=== PATIENT | female | born 1970 | race American Indian/Alaskan Native ===

== ENCOUNTER 2019-01-24 01:32 | Emergency (ER) | payer BC, OTHER ==
[~2019-01-24] VITALS: Ht 165.1 cm; Wt 56.0 kg
[~2019-01-24 01:32] MED LIST: CYCL-1 PO; FAMO-1 PO; HYDR-3965 PO; PANT-47 PO; POTA20TA19 PO; ZOF4T PO
[2019-01-24 01:35] VITALS: BP 136/92
[2019-01-24] MEDS ORDERED: LIDOcaine Viscous 15ml cup PO ONE (01:50)
[2019-01-24] MEDS ORDERED: mag hydrox/Alum hydrox/simeth 30ml oral suspension PO ONE (01:50)
[2019-01-24] MEDS ORDERED: OMEP40CA13 PO (02:05)
== END 2019-01-24 02:26 | disposition home or self-care (01) ==
LOC: ER 01:33
DX: R10.13 Epigastric pain (principal); R11.0 Nausea; F41.9 Anxiety disorder, unspecified; Z90.49 Acquired absence of other specified parts of digestive tract; Z98.84 Bariatric surgery status; Z88.0 Allergy status to penicillin; Z79.899 Other long term (current) drug therapy
CPT/HCPCS: 99282

== ENCOUNTER 2020-06-04 18:09 | Emergency (ER) | payer BC ==
[~2020-06-04] VITALS: Ht 165.1 cm; Wt 51.8 kg
[2020-06-04 18:56] LABS: CLARITY,URINE CLEAR (Clear); COLOR,URINE YELLOW (Yellow); GLUCOSE, URINE NEGATIVE (Neg); KETONES,URINE 15 mg/dl (Neg); LEUKOCYTE ESTERASE ,URINE SMALL (Neg); NITRITES, URINE POSITIVE (Neg); OCCULT BLOOD,URINE NEGATIVE (Neg); PROTEIN,URINE NEGATIVE (Neg); URINE HCG NEGATIVE (NEG); UROBILINOGEN,URINE 0.2 E.U/dL (0.2-1.0)
[2020-06-04 19:02] LABS: UA COLLECTION TYPE CLN CATCH MIDSTREAM
[2020-06-04 19:03] LABS: BASOPHILS # (AUTO) 0.1 X10'3 (0-0.2); BASOPHILS % (AUTO) 0.7 % (0-1); EOSINOPHILS # (AUTO) 0.1 X10'3 (0-0.9); EOSINOPHILS % (AUTO) 0.8 % (0-6); HEMATOCRIT 36.9 % (35.0-45.0); HEMOGLOBIN 11.7 g/dl (12.0-16.0); LYMPHOCYTES # (AUTO) 1.5 X10'3 (1.1-4.8); LYMPHOCYTES % (AUTO) 19.1 % (21-51); MEAN CORPUSCULAR HEMOGLOBIN 25.4 PG (27.0-31.0); MEAN CORPUSCULAR HGB CONC 31.7 g/dL (33.0-36.5); MEAN CORPUSCULAR VOLUME 79.9 FL (78-98); MEAN PLATELET VOLUME 8.9 FL (7.4-10.4); MONOCYTES # (AUTO) 0.7 X10'3 (0-0.9); MONOCYTES % (AUTO) 8.3 % (2-12); NEUTROPHILS # (AUTO) 5.7 X10'3 (1.8-7.7); NEUTROPHILS % (AUTO) 71.1 % (42-75); PLATELET COUNT 215 X10'3 (140-440); RED BLOOD COUNT 4.62 X10'6 (4.20-5.60); RED CELL DISTRIBUTION WIDTH 15.1 % (11.5-14.5)
[2020-06-04 19:04] LABS: BACTERIA,URINE 4+ /HPF (Neg); RBC,URINE NONE SEEN /HPF (0-2); SQUAMOUS EPITHELIAL CELL,UR FEW /LPF (FEW)
[2020-06-04 19:19] LABS: ALANINE AMINOTRANSFERASE 34 U/L (12-78); ALBUMIN 3.9 G/DL (3.4-5.0); ALBUMIN/GLOBULIN RATIO 0.9 (1.1-1.5); ALKALINE PHOSPHATASE 99 IU/L (46-116); ANION GAP 14 (8-16); ASPARTATE AMINO TRANSFERASE 26 U/L (10-37); BILIRUBIN,TOTAL 0.8 MG/DL (0.1-1.0); BLOOD UREA NITROGEN 14 MG/DL (7-18); BUN/CREATININE RATIO 17.9 (6.6-38.0); CALCIUM 9.4 MG/DL (8.5-10.1); CHLORIDE 108 MMOL/L (99-107); CREATININE 0.78 MG/DL (0.40-0.90); GLUCOSE 77 MG/DL (70-104); LIPASE 107 U/L (73-393); POTASSIUM 3.7 MMOL/L (3.5-5.1); SODIUM 148 MMOL/L (135-145); TOTAL CARBON DIOXIDE 26.4 MMOL/L (24-32); TOTAL PROTEIN 8.4 G/DL (6.4-8.2); eGFR 79 ML/MIN
[2020-06-04] MEDS ORDERED: ondansetron 4mg rapidly disintigrating tab PO ONE (20:30)
[2020-06-04] MEDS ORDERED: sulfamethoxazole/trimethoprim DS (800/160mg) tablet PO ONE (21:30)
[2020-06-04] MEDS ORDERED: proCHLORperazine 10 MG/2 ml inj IM ONE (21:30)
[2020-06-04] MEDS ORDERED: PROC-8 PO (21:36)
[2020-06-04] MEDS ORDERED: SULF1TAB49 PO (21:36)
[2020-06-04 21:43] VITALS: BP 152/81
== END 2020-06-04 21:55 | disposition home or self-care (01) ==
LOC: ER 18:09 → MERGE 18:09 → ER 21:55
DX: N39.0 Urinary tract infection, site not specified (principal); R10.13 Epigastric pain; R11.2 Nausea with vomiting, unspecified; F17.200 Nicotine dependence, unspecified, uncomplicated; Z90.49 Acquired absence of other specified parts of digestive tract; Z88.0 Allergy status to penicillin; Z79.899 Other long term (current) drug therapy
CPT/HCPCS: 36415; 80053; 81001; 81025; 83690; 85025; 87077; 87088; 87186; 96372; 99284; J0780

== ENCOUNTER 2020-11-28 22:56 | Emergency (ER) | payer BC ==
[~2020-11-28] VITALS: Ht 165.1 cm; Wt 114.0 kg
[~2020-11-28 22:56] MED LIST changes: +PROC-8 PO
[2020-11-28 23:59] LABS: ALANINE AMINOTRANSFERASE 24 U/L (12-78); ALBUMIN 3.8 G/DL (3.4-5.0); ALBUMIN/GLOBULIN RATIO 0.8 (1.1-1.5); ALKALINE PHOSPHATASE 109 IU/L (46-116); ANION GAP 15 (8-16); ASPARTATE AMINO TRANSFERASE 21 U/L (10-37); BILIRUBIN,TOTAL 0.7 MG/DL (0.1-1.0); BLOOD UREA NITROGEN 16 MG/DL (7-18); BUN/CREATININE RATIO 19.5 (6.6-38.0); CHLORIDE 107 MMOL/L (99-107); CREATININE 0.82 MG/DL (0.40-0.90); GLUCOSE 64 MG/DL (70-104); LIPASE 121 U/L (73-393); POTASSIUM 3.7 MMOL/L (3.5-5.1); SODIUM 146 MMOL/L (135-145); TOTAL CARBON DIOXIDE 24.5 MMOL/L (24-32); TOTAL PROTEIN 8.3 G/DL (6.4-8.2); eGFR 74 ML/MIN
[2020-11-29 02:12] LABS: HEMATOCRIT 38.8 % (35.0-45.0); HEMOGLOBIN 12.4 g/dl (12.0-16.0); MEAN CORPUSCULAR VOLUME 70.7 FL (78-98); RED BLOOD COUNT 5.49 X10'6 (4.20-5.60); WHITE BLOOD COUNT 4.3 X10'3 (4.5-11.0)
[2020-11-29 02:13] LABS: BASOPHILS % (AUTO) 1.8 % (0-1); EOSINOPHILS % (AUTO) 1.1 % (0-6); LYMPHOCYTES % (AUTO) 30.1 % (21-51); MEAN CORPUSCULAR HEMOGLOBIN 22.7 PG (27.0-31.0); MEAN CORPUSCULAR HGB CONC 32.1 g/dL (33.0-36.5); MONOCYTES % (AUTO) 5.8 % (2-12); NEUTROPHILS % (AUTO) 61.2 % (42-75); RED CELL DISTRIBUTION WIDTH 18.8 % (11.5-14.5)
[2020-11-29 02:14] LABS: BASOPHILS # (AUTO) 0.1 X10'3 (0-0.2); LYMPHOCYTES # (AUTO) 1.3 X10'3 (1.1-4.8); MONOCYTES # (AUTO) 0.2 X10'3 (0-0.9); NEUTROPHILS # (AUTO) 2.6 X10'3 (1.8-7.7)
[2020-11-29] MEDS ORDERED: ondansetron/PF 4mg/2ml inj IV ONE (03:40)
[2020-11-29] MEDS ORDERED: proCHLORperazine 10 MG/2 ml inj IV ONE (03:40)
[2020-11-29] MEDS ORDERED: pantoprazole 40 MG vial IV ONE (03:40)
[2020-11-29] MEDS ORDERED: ketorolac trometh. 30mg/ml inj. IV ONE (03:40)
[2020-11-29] MEDS ORDERED: famotidine/PF 10 mg/ml inj IV ONE (03:40)
[2020-11-29] MEDS ORDERED: dextrose 5%-1/2 normal saline 1,000 ML IV ONE (03:45)
[2020-11-29] MEDS ORDERED: PROC-8 PO (05:38)
[2020-11-29] MEDS ORDERED: ONDA4TAB6 PO (05:40)
--- NOTE | 2020-11-29 05:57 | NUR ---
called daughter xochitl to come black pickler pt as pt is discharge ready. pt said she will send her sister to come black pickler pt
[2020-11-29 06:54] VITALS: BP 120/83
== END 2020-11-29 06:57 | disposition home or self-care (01) ==
LOC: ER 22:57
DX: R11.2 Nausea with vomiting, unspecified (principal); R10.84 Generalized abdominal pain; Z90.49 Acquired absence of other specified parts of digestive tract; Z98.890 Other specified postprocedural states; Z88.0 Allergy status to penicillin; Z79.899 Other long term (current) drug therapy
CPT/HCPCS: 36415; 80053; 82948; 83690; 85025; 96361; 96374; 96375; 99284; C9113; J0780; J1885; J2405; J3490

== ENCOUNTER 2024-06-18 15:08 | Emergency (ER) | payer BC, OTHER ==
[~2024-06-18] VITALS: Ht 165.1 cm; Wt 71.8 kg
[~2024-06-18 15:08] MED LIST changes: +ONDA4TAB6 PO; +POTA-207 PO; -POTA20TA19 PO
[2024-06-18 15:42] VITALS: BP 90/57; PULSE 67; TEMP 97.4; O2SAT 100
[2024-06-18] MEDS ORDERED: HYDR-3965 PO (17:25)
[2024-06-18] MEDS: HYDROcodone/acetaminophen 10/325mg tab PO ONE (17:44)
[2024-06-18 18:00] VITALS: RESP 16
== END 2024-06-18 18:13 | disposition home or self-care (01) ==
LOC: ER 15:09
DX: S52.021A Displaced fracture of olecranon process without intraarticular extension of right ulna, initial encounter for closed fracture (principal); Z88.0 Allergy status to penicillin; Z90.49 Acquired absence of other specified parts of digestive tract; Z79.899 Other long term (current) drug therapy; W18.39XA Other fall on same level, initial encounter; Y93.89 Activity, other specified; Y92.89 Other specified places as the place of occurrence of the external cause; Y99.8 Other external cause status
CPT/HCPCS: 29105; 73080; 99283; A4565; A6258; A6446; A6449

== ENCOUNTER 2025-01-01 06:17 | Day surgery (SDC) | payer BC, OTHER ==
--- NOTE | 2024-12-21 15:53 | ELECTROCARDIOGRAPH REPORT ---
[facility] Test Date: 2024-12-21 Test Time: 15:48:02 Pat Name: ASHER SALEH Department: [facility]-PRE-OP Patient ID: [facility]-[id number] Room: Gender: F [employer] Records Clerk: : 1970 Requested By: CYN LOZANO Order Number: [id number] Reading MD: Dr. LARRY Zee Measurements Intervals Win[place] Rate: 63 P: 71 OK: 152 QRS: 84 QRSD: 135 T: 70 QT: 437 QTc: 448 Interpretive Statements Sinus rhythm IVCD, consider atypical RBBB Electronically Signed On 12-22-2024 15:36:[address] LARRY Zee Please click the below link to view image of tracing.
[2024-12-21 16:44] LABS: MEAN PLATELET VOLUME 9.3 FL (7.4-10.4); PRE OP HEMATOCRIT 35.7 % (35.0-45.0); PRE OP HEMOGLOBIN 11.9 g/dL (12.0-16.0); PRE OP PLATELET COUNT 186 X10'3 (140-440); PRE OP WHITE BLOOD COUNT 7.2 10'3 (4.8-10.8); RED CELL DISTRIBUTION WIDTH 16.5 % (11.5-14.5)
[2024-12-21 17:21] LABS: CREATININE 0.76 MG/DL (0.40-0.90); PRE OP ALT 21 U/L (30-65); PRE OP ANION GAP 7 (8-16); PRE OP AST 18 U/L (10-37); PRE OP BILIRUB, TOTAL 0.4 MG/DL (0.0-1.0); PRE OP GLUCOSE 93 MG/DL (70-104); PRE OP POTASSIUM 3.6 MMOL/L (3.4-5.1); PRE OP SODIUM 139 MMOL/L (135-145); TOTAL CARBON DIOXIDE 23.0 MMOL/L (24-32); eGFR 80 ML/MIN
[2025-01-01] VITALS (19 sets, daily range): BP systolic 97–138; BP diastolic 68–94; PULSE 53–61; RESP 10–16; TEMP 97.6; O2SAT 97–100
[~2025-01-01] VITALS: Ht 165.1 cm; Wt 66.5 kg
[~2025-01-01 06:17] MED LIST changes: -CYCL-1 PO; -FAMO-1 PO; -HYDR-3965 PO; +NO HOME MEDS; -ONDA4TAB6 PO; -PANT-47 PO; -POTA-207 PO; -PROC-8 PO; -ZOF4T PO; +ceFAZolin 2gm/dext,iso 50mL 50 ML IV ONE; +clindamycin-Cleocin 900mg/D5W 50 ML IV ONE
[2025-01-01] MEDS ORDERED: BUPIVAcaine/PF 2.5mg/ml (0.25%) 10ml vial ONE ×2 (06:49→09:00)
[2025-01-01] MEDS: ringers solution, lacted 1,000 ML IV SCH (07:28)
[2025-01-01] MEDS ORDERED: ondansetron/PF 4mg/2ml inj IV PRN (08:10)
[2025-01-01] MEDS ORDERED: meperidine/PF 25mg/ml syringe IV PRN ×3 (08:10)
[2025-01-01] MEDS ORDERED: ringers solution, lacted 1,000 ML IV SCH (08:10)
[2025-01-01] MEDS ORDERED: labetalol 20mg/4ml (5mg/ml) syringe IV PRN (08:10)
[2025-01-01] MEDS ORDERED: enalaprilat 1.25mg/ml 2ml vial IV PRN (08:10)
[2025-01-01] MEDS ORDERED: morphine 4 MG/ML inj SYRINge IV PRN (08:10)
[2025-01-01] MEDS ORDERED: fentaNYL/PF 50MCG/1 ML 2ML syringe ONE (08:51)
[2025-01-01] MEDS ORDERED: MIDAZolam 1 MG/ML 5ML VIAL ONE (08:53)
[2025-01-01] MEDS ORDERED: ketorolac trometh 30MG/ML vial 30 MG/ML VIAL ONE (08:53)
[2025-01-01] MEDS ORDERED: LIDOcaine 0.5% (5mg/ml) 50ml vial ONE (08:54)
[2025-01-01] MEDS ORDERED: LIDOcaine 2% (20mg/ml) 5ml vial ONE ×2 (08:59→09:04)
[2025-01-01] MEDS ORDERED: propofol inj 20 ML IV ONE (09:21)
--- NOTE | 2025-01-01 11:03 | OPERATIVE REPORT ---
Operative Report Providers to ~ Date of Procedure: Jan 01, 2025 Pre-Operative Diagnosis: Left CTS middle trigger cubital tunnel Post-Operative Diagnosis Left wrist carpal tunnel syndrome, left elbow cubital tunnel syndrome, left middle finger trigger finger Procedure Performed 1, left wrist open carpal tunnel release. 2. Left ulnar neuroplasty at elbow with in-situ decompression. 3. Left middle finger trigger release Surgeon: Parker Moreau MD Automotive Title Clerk None Anesthesiologist: Brian Rojas Findings: Estimated Blood Loss: None Specimen Removed: None Description of Procedure: INDICATIONS: This is a 54-year-old with left carpal tunnel syndrome, , cubital tunnel syndrome and left middle trigger finger refractory to nonsurgical treatment. Surgery is indicated to relieve symptoms. DESCRIPTION OF PROCEDURE: After the block was given, the arm was prepped and draped in usual manner. Transverse incision was made at the wrist crease, ulnar to palmaris longus. A distally based U-shaped flap was raised in the forearm fascia. Carpal tunnel was entered with the scope in line with the ring finger. The cutting blade was deployed up against the underside of the distal end of the ligament and scope withdrawn proximally dividing the ligament. Scope was removed. Flap was transected and the fascia proximal to that was divided a short distance using blunt scissor tips. The incision was irrigated and closed with nylon suture. Marcaine was injected. An incision was made over the flexor tendon at the middle finger level distally in the palm. Dissection was taken down to the tendon sheath where the A1 usama was identified and incised longitudinally. Neurovascular bundles were protected. Then inset incision was closed with nylon suture. Attention was turned to the elbow then An incision was made posterior to the medial epicondyle and dissection was taken down bluntly to the cubital tunnel. The nerve was palpated in the ulnar groove and was unroofed at that level. The nerve was decompressed at this is a of 5 cm distal and proximal to the elbow. Right at the epicondyle level there appeared to be some compression of the nerve and swelling proximal to that. That was completely decompressed. The nerve was stable in the ulnar groove so the incision was irrigated and closed in layers. Marcaine was injected at the elbow level. A sterile dressing was then applied of the elbow and hand level and the tourniquet was released. The hand perfused well and the patient was taken to the recovery room in stable condition PARKER MOREAU Jr., MD Jan 01, 2025 11:03
== END 2025-01-01 12:33 | disposition home or self-care (01) ==
LOC: PAS 06:17
PROVIDERS: ATTEND Orthopaedic Surgery Hand Surgery
DX: G56.02 Carpal tunnel syndrome, left upper limb (principal); G56.22 Lesion of ulnar nerve, left upper limb; M65.332 Trigger finger, left middle finger; I45.10 Unspecified right bundle-branch block; K21.9 Gastro-esophageal reflux disease without esophagitis; F41.9 Anxiety disorder, unspecified; F32.A Depression, unspecified; Z79.899 Other long term (current) drug therapy; Z90.49 Acquired absence of other specified parts of digestive tract; Z98.890 Other specified postprocedural states; Z88.0 Allergy status to penicillin
CPT/HCPCS: 36415; 80053; 82948; 85025; 93005; A4215; A6449; J1885; J2003; J2250; J2704; J3010; J3490; J7120